=== PATIENT | female | born 1995 | race Caucasian/White ===

== ENCOUNTER 2017-03-14 00:38 | Emergency (ER) ==
[2017-03-14 00:51] VITALS: BP 137/72; TEMP 98.2; BMI 42.7
[2017-03-14 01:21] LABS: BILIRUBIN,URINE Negative (NEGATIVE); KETONES,URINE Negative (NEGATIVE); LEUKOCYTE ESTERASE ,URINE Negative (NEGATIVE); NITRITE,URINE Negative (NEGATIVE); PROTEIN,URINE Negative (NEGATIVE); URINE, BLOOD 2+ (NEGATIVE)
[2017-03-14 01:22] LABS: URINE PREGNANCY INTERNAL QC INTERNAL QC VALID
[2017-03-14 01:26] LABS: BASOPHILS # (AUTO) 0.1 K/uL (0-0.2); BASOPHILS % (AUTO) 0.8 % (0.0-3.0); EOSINOPHILS # (AUTO) 0.2 K/ul (0.0-0.7); EOSINOPHILS % (AUTO) 2.2 % (0.0-7.0); HEMATOCRIT 38.5 % (37.0-47.0); HEMOGLOBIN 12.4 g/dl (12.0-16.0); IMMATURE GRANULOCYTE % (AUTO) 0.8 % (0.0-5.0); LYMPHOCYTES % (AUTO) 36.2 (10.0-50.0); MEAN CORPUSCULAR HEMOGLOBIN 24.5 pg (27.0-31.0); MEAN CORPUSCULAR HGB CONC 32.2 (31.8-35.4); MEAN CORPUSCULAR VOLUME 75.9 fl (81.0-99.0); MONOCYTES # (AUTO) 0.6 K/uL (0.4-2.0); MONOCYTES % (AUTO) 5.3 (0-10); NEUTROPHILS % (AUTO) 54.7; PLATELET COUNT 279 10^3/uL (140-440); RED BLOOD COUNT 5.07 10^6/ul (4.20-5.40)
[2017-03-14 01:38] LABS: ALBUMIN 3.2 g/dL (3.4-5.0); ALBUMIN/GLOBULIN RATIO 0.74; ANION GAP 14.7; BILIRUBIN,TOTAL 0.19 mg/dL (0.00-1.20); BUN/CREATININE RATIO 17.39; CALCIUM 9.3 mg/dL (8.2-10.2); CREATININE 0.69 mg/dL (0.60-1.30); POTASSIUM 3.7 mmol/L (3.5-5.10); TOTAL PROTEIN 7.5 g/dL (6.4-8.2)
[2017-03-14 01:44] LABS: ADD URINE MICROSCOPIC YES
[2017-03-14 01:51] LABS: ERYTHROCYTE SEDIMENTATION RATE 24 mm/hr (0-20); ESR INTERNAL QC INTERNAL QC VALID
[2017-03-14] MEDS: ZOFRAN 4 MG/2 ML IVP STA (02:01)
[2017-03-14] MEDS: SODIUM CHLORIDE 1,000 ML IV STA (02:01)
[2017-03-14] MEDS: MORPHINE 2 MG/ML SYRINGE IVP STA (02:01)
--- NOTE | 2017-03-14 02:27 | CT ---
Exam: CT of the abdomen pelvis without contrast History: Abdominal pain Technique: [address] of the abdomen and pelvis without intravascular contrast FINDINGS: The lung bases are clear. No significant liver abnormality. The adrenals, pancreas and spl een are unremarkable. The stomach and hiatus are unremarkable.The gallbladder appears normal. Kidneys and proximal collecting system are unremarkable. Abundant lymph nodes of the central mesentery. The appendix is normal. Bowel loops demonstrate normal caliber. No inflamatory change seen in the mesent tj or retroperitoneum. Vascular structures appear normal by noncontrast CT. Pelvic genitourinary structures appear normal. Pelvic bowel loops are unremarkable. No inflammatory c hange in the pelvic fat. No acute abnormality of the abdominal or pelvic skeleton. Impression: 1. No inflammatory process, bowel or urinary obstruction is seen. 2. Nonspecific abundance of mesenteric lymph nodes. Inguinal lymph nodes are also slightly prominen t.
--- NOTE | 2017-03-14 03:22 | ED.PDOC ---
General ED Provider: Dr. SHITAL TAN-ER Chief Complaint: Abdominal Pain Stated Complaint: iim having cramps Time Seen by Physician: 00:45 Mode of Arrival: Walk-In Information Source: Patient, Family Exam Limitations: No limitations Primary Care Provider: JEFF SNYDER Nursing and Triage Documentation Reviewed and Agree: Yes GI Complaint Exam - Abdominal Pain Complaint/Exam Onset: Gradual Duration: 2 days Symptoms Are: Still present Timing: Constant Initial Severity: Mild Current Severity: Mild Location of Pain: Diffuse Character: Reports: Dull, Cramping, Unable to describe Aggravating: Reports: None Alleviating: Reports: None Associated Signs and Symptoms: Denies: Diaphoresis, Fever, Cough, Chest pain, Dizziness, Back pain, Constipation, Blood in stool, Dysuria, Urinary frequency, Decreased urine output, Decreased appetite, Vaginal bleeding, Vaginal discharge , Nausea, Vomiting, Diarrhea, Sore throat, Decreased activity Related History: Reports: Similar episode AAA Risk Factors: Reports: None Ovarian Torsion Risk Factors: Reports: Reproductive age Surgical Obstruction Risk Factors: Reports: None Related Surgical History: Reports: None Patient Rh Status: Unknown Abdominal Findings: Present: None Review of Systems - Review Of Systems Constitutional: Reports: No symptoms Eyes: Reports: No symptoms Ears, Nose, Mouth, Throat: Reports: No symptoms Respiratory: Reports: No symptoms Cardiac: Reports: No symptoms GI: Reports: Abdominal pain : Reports: No symptoms Musculoskeletal: Reports: No symptoms Skin: Reports: No symptoms Neurological: Reports: No symptoms Endocrine: Reports: No symptoms Hematologic/Lymphatic: Reports: No symptoms All Other Systems: Reviewed and Negative Past Medical History - Past Medical History Previously Healthy: No Endocrine: Reports: None Cardiovascular: Reports: None Respiratory: Reports: None Hematological: Reports: None Gastrointestinal: Reports: None Genitourinary: Reports: None Neuro/Psych: Reports: None Musculoskeletal: Reports: None Cancer: Reports: None Last Menstrual Period: 02/15-02/17 PERIODS ARE IRREGULAR - Surgical History General Surgical History: Reports: Unknown - Family History Family History: Reports: Unknown - Social History Smoking Status: Never smoker Hx Substance Use: No Alcohol Screening: Occasionally - Immunizations Tetanus Shot up to Date: Yes Physical Exam - Physical Exam Appearance: Well-appearing, No pain distress, Well-nourished Pain Distress: Mild Eyes: MIGUEL, EOMI, Conjunctiva clear ENT: Ears normal, Nose normal, Oropharynx normal Neck: Supple Respiratory: Airway patent Cardiovascular: RRR, Pulses normal, No rub, No murmur GI/: Soft, Nontender, No masses, Bowel sounds normal, No Organomegaly Musculoskeletal: Normal strength, ROM intact, No edema, No calf tenderness Skin: Warm, Dry, Normal color Neurological: Sensation intact, Motor intact, Reflexes intact, Cranial nerves intact, Alert, Oriented Psychiatric: Affect appropriate, Mood appropriate, Anxious Interpretation - Radiology Interpretation Radiology Interpretation By: Radiologist Radiology Results: Negative Exam Interpreted: CT Scan Re-Evaluation - Re-Evaluation Time of Re-Evaluation: 03:22 Status: Improved Vital Signs Stable: Yes Pain Level: 0 Appearance: NAD Lungs: Clear Skin: Warm and Dry Neuro: Alert and Oriented X3 CV: RRR Critical Care Note - Critical Care Note Total Time (mins): 0 Course - Course Hematology/Chemistry: 03/14/17 01:15 03/14/17 01:15 Orders, Labs, Meds: Lab Review 03/14/17 03/14/17 03/14/17 01:10 01:10 01:15 WBC 11.00 H RBC 5.07 Hgb 12.4 Hct 38.5 MCV 75.9 L MCH 24.5 L MCHC 32.2 RDW Coeff of Kia 15.0 H Plt Count 279 Immature Gran % (Auto) 0.8 Neut % (Auto) 54.7 Lymph % (Auto) 36.2 [place] % (Auto) 5.3 Eos % (Auto) 2.2 Baso % (Auto) 0.8 Immature Gran # (Auto) 0.1 Neut # 6.0 Lymph # 4.0 H [place] # 0.6 Eos # 0.2 Baso # 0.1 ESR 24 H Sodium Potassium Chloride Carbon Dioxide Anion Gap BUN Creatinine Estimated GFR (MDRD) BUN/Creatinine Ratio Glucose Calcium Total Bilirubin AST ALT Alkaline Phosphatase Total Protein Albumin Globulin Albumin/Globulin Ratio Amylase Lipase Urine Color Yellow Urine Clarity Clear Urine pH 5.0 Ur Specific Ruby >=1.030 Urine Protein Negative Urine Glucose (UA) Negative Urine Ketones Negative Urine Blood 2+ Urine Nitrite Negative Urine Bilirubin Negative Urine Urobilinogen 0.2 Ur Leukocyte Esterase Negative Urine Microscopic RBC 5-10 Ur Squamous Epith Cells 0-2 Urine Test Negative 03/14/17 01:15 WBC RBC Hgb Hct MCV MCH MCHC RDW Coeff of [place] Plt Count Immature Gran % (Auto) Neut % (Auto) Lymph % (Auto) [place] % (Auto) Eos % (Auto) Baso % (Auto) Immature Gran # (Auto) Neut # Lymph # [place] # Eos # Baso # ESR Sodium 138 Potassium 3.7 Chloride 105 Carbon Dioxide 22 Anion Gap 14.7 BUN 12 Creatinine 0.69 Estimated GFR (MDRD) 107.00 BUN/Creatinine Ratio 17.39 Glucose 115 H Calcium 9.3 Total Bilirubin 0.19 AST 13 L ALT 12 Alkaline Phosphatase 67 Total Protein 7.5 Albumin 3.2 L Globulin 4.3 Albumin/Globulin Ratio 0.74 Amylase 39 Lipase 29 Urine Color Urine Clarity Urine pH Ur Specific Ruby Urine Protein Urine Glucose (UA) Urine Ketones Urine Blood Urine Nitrite Urine Bilirubin Urine Urobilinogen Ur Leukocyte Esterase Urine Microscopic RBC Ur Squamous Epith Cells Urine Test Orders Category Date Time Status NPO REMINDER: IMAGING ONCE CARE 03/14/17 01:06 Completed IV [ED IV/MEDIPORT/POWERPORT] .ONCE EMERGENCY 03/14/17 01:05 Active AMYLASE Stat LAB 03/14/17 01:15 Completed CBC W/ AUTO DIFF Stat LAB 03/14/17 01:15 Completed COMPREHENSIVE METABOLIC PANEL Stat LAB 03/14/17 01:15 Completed ESR Stat LAB 03/14/17 01:15 Completed LIPASE Stat LAB 03/14/17 01:15 Completed UA [URINALYSIS C & S IF INDICATED] Stat LAB 03/14/17 01:10 Completed URINE Stat LAB 03/14/17 01:10 Completed 0.9 % Sodium Chloride [Saline Flush] MEDS 03/14/17 01:05 Ordered 1 syr IVF PRN PRN Morphine Sulfate [Morphine 2 mg/ml Syringe] MEDS 03/14/17 01:06 Discontinued 2 mg IVP ONCE STA Ondansetron HCl/Pf [Zofran 4 mg/2 ml] MEDS 03/14/17 01:06 Discontinued 4 mg IVP ONCE STA Sodium Chloride 0.9% [Sodium Chloride] 1,000 ml MEDS 03/14/17 01:05 Active IV 100 mls/hr CT ABDOMEN/PELVIS WO CONTRAST Stat RADS 03/14/17 02:13 Completed Medications Generic Name Dose Route Start Last Admin Trade Name Freq PRN Reason Stop Dose Admin Sodium Chloride 1,000 mls @ 100 mls/hr 03/14/17 01:05 03/14/17 02:01 Sodium Chloride IV 03/14/17 11:04 100 mls/hr .Q10H STA Administration Sodium Chloride 1 syr 03/14/17 01:05 03/14/17 02:01 Saline Flush IVF 1 syr PRN PRN Administration To flush IV Discontinued Medications Generic Name Dose Route Start Last Admin Trade Name Freq PRN Reason Stop Dose Admin Morphine Sulfate 2 mg 03/14/17 01:06 03/14/17 02:01 Morphine 2 Mg/Ml Syringe IVP 03/14/17 01:07 2 mg ONCE STA Administration Ondansetron HCl 4 mg 03/14/17 01:06 03/14/17 02:01 Zofran 4 Mg/2 Ml IVP 03/14/17 01:07 4 mg ONCE STA Administration Vital Signs: Temp Pulse Resp BP Pulse Ox 03/14/17 00:39 98.2 F 100 H 20 137/72 99 Departure - Departure Time of Disposition: 03:22 Disposition: HOME SELF-CARE Discharge Problem: Dysmenorrhea Instructions: Dysmenorrhea (ED) Condition: Good Pt referred to PMD for follow-up: Yes Additional Instructions: f/u with your correctional case manager Allergies/Adverse Reactions: Allergies No Known Drug Allergies Adverse Reaction (Verified 03/14/17 00:50) Home Medications: Ambulatory Orders 1 [No Reported Medications] 03/14/17 Disposition Discussed With: Patient, Family
== END 2017-03-14 03:26 | disposition home or self-care (01) ==
LOC: ED 00:38
DX: N94.6 Dysmenorrhea, unspecified (principal)
CPT/HCPCS: 36415; 80053; 81001; 81025; 82150; 83690; 85025; 85651; 96361; 96374; 96375; 99283

== ENCOUNTER 2017-06-16 03:51 | Outpatient (CLI) | END 2017-06-16 03:52 | disposition short-term general hospital (02) | LOC: AMBL 03:51 | PROVIDERS: ATTEND Internal Medicine Geriatric Medicine | DX: R10.9 Unspecified abdominal pain (principal); M54.9 Dorsalgia, unspecified; Z33.1 Pregnant state, incidental; W08.XXXA Fall from other furniture, initial encounter ==